=== PATIENT | female | born 1945 | race Hispanic/Latino ===

== ENCOUNTER → 2018-08-04 | Outpatient (CLI) | payer OTHER, MEDICARE ==
[~2018-08-04] MED LIST: ASPI-1005 PO; FURO20TA4 PO; LORA0.5P MC; LOSA50TA25 PO; METO-408 PO; ONDA4TAB10 PO; PRAV40TA3 PO; RANI150T7 PO; SERT25TA5 PO; TRAM50TA4 PO
== END | disposition home or self-care (01) ==
LOC: SHCH 09:18
PROVIDERS: ATTEND Internal Medicine Cardiovascular Disease
DX: I35.0 Nonrheumatic aortic (valve) stenosis (principal); I51.7 Cardiomegaly; I65.23 Occlusion and stenosis of bilateral carotid arteries; Z95.2 Presence of prosthetic heart valve
CPT/HCPCS: 93306; 93880

== ENCOUNTER → 2020-12-09 | Outpatient (CLI) | payer OTHER, MEDICARE ==
[~2020-12-09] MED LIST changes: -LOSA50TA25 PO; +LOSA50TA64 PO; +SERT-438 PO; -SERT25TA5 PO
== END | disposition home or self-care (01) ==
LOC: SHCH 10:00
PROVIDERS: ATTEND Internal Medicine Cardiovascular Disease
DX: I35.8 Other nonrheumatic aortic valve disorders (principal); I27.20 Pulmonary hypertension, unspecified; R01.1 Cardiac murmur, unspecified
CPT/HCPCS: 93306; 93356

== ENCOUNTER → 2020-12-13 | Outpatient (CLI) | payer OTHER, MEDICARE ==
[~2020-12-13] VITALS: Ht 162.6 cm; Wt 95.3 kg
[~2020-12-13] MED LIST changes: +REGADENOSON 0.4 MG/5 ML PF SYG IVP SCH
== END | disposition home or self-care (01) ==
LOC: SHCH 08:18
PROVIDERS: ATTEND Internal Medicine Cardiovascular Disease
DX: I10 Essential (primary) hypertension (principal); Z79.899 Other long term (current) drug therapy; R07.89 Other chest pain
CPT/HCPCS: 78452; 93017; 96374; A9500 ×2; J2785

== ENCOUNTER 2021-01-03 07:24 | Day surgery (SDC) | payer OTHER, MEDICARE ==
[2021-01-01 11:40] LABS: APPEARANCE,URINE Clear (CLEAR); BILIRUBIN,URINE Negative (NEGATIVE); COLOR,URINE Yellow (YELLOW); GLUCOSE, URINE (UA) Negative (NEGATIVE); KETONES,URINE Negative (NEGATIVE); LEUKOCYTE ESTERASE ,URINE Moderate (NEGATIVE); NITRATE,URINE Negative (NEGATIVE); OCCULT BLOOD,URINE Negative (NEGATIVE); PROTEIN,URINE Negative (NEGATIVE); UROBILINOGEN,URINE 0.2 mg/dL (0.2-1.0)
[2021-01-01 11:42] LABS: BASOPHILS % (AUTO) 0.9 % (0.0-5.0); HEMATOCRIT 39.7 % (36-48); LYMPHOCYTES % (AUTO) 29.9 % (21.0-51.0); MEAN CORPUSCULAR HEMOGLOBIN 28.2 pg (27.0-33.0); MEAN CORPUSCULAR HGB CONC 33.8 g/dL (32.0-36.0); MEAN CORPUSCULAR VOLUME 83.4 fL (79-99); MONOCYTES % (AUTO) 5.4 % (3.0-13.0); NEUTROPHILS % (AUTO) 59.5 % (40.0-77.0); PLATELET COUNT (AUTO) 170 K/uL (130-400); RED BLOOD CELL COUNT(AUTO) 4.76 MIL/uL (4.00-5.50); RED CELL DISTRIBUTION WIDTH 13.3 % (11.0-15.5); WHITE BLOOD COUNT (AUTO) 8.8 K/uL (4.8-10.8)
[2021-01-01 11:44] LABS: BACTERIA,URINE Rare /HPF (None Seen); RBC,URINE 0-1 /HPF (0-1); SQUAMOUS EPITHELIAL CELL,UR Rare /HPF (0-2)
[2021-01-01 11:50] LABS: PROTHROMBIN TIME 10.9 SEC (9.6-11.6)
[2021-01-01 11:51] LABS: PARTIAL THROMBOPLASTIN TIME 25.4 SEC (26.3-35.5)
[2021-01-01 11:55] LABS: CREATININE 0.8 mg/dL (0.5-1.5); POTASSIUM 4.2 mmol/L (3.5-5.1)
[2021-01-02 09:08] VITALS: BP 127/64
[2021-01-03] VITALS (30 sets, daily range): BP systolic 14–141; BP diastolic 47–144
[~2021-01-03] VITALS: Ht 157.5 cm; Wt 93.1 kg
[~2021-01-03 07:24] MED LIST changes: -ASPI-1005 PO; +ATOR10 PO; +LEVO50TA11 PO; +LISI10TA24 PO; -LORA0.5P MC; -LOSA50TA64 PO; +METF-444 PO; +OMEP40CA13 PO; -ONDA4TAB10 PO; -PRAV40TA3 PO; -RANI150T7 PO; -REGADENOSON 0.4 MG/5 ML PF SYG IVP SCH
[2021-01-03] MEDS ORDERED: SODIUM CHLORIDE 0.9% 500ML 500 ML IV ONE (08:09)
[2021-01-03] MEDS ORDERED: IOHEXOL-350 75 ML VIAL IV ONE (11:01)
[2021-01-03] MEDS ORDERED: MIDAZOLAM HCL 1 MG/ML 2ML VIAL ONE ×2 (11:01→14:03)
[2021-01-03] MEDS ORDERED: LIDOCAINE HCL 2% 20ML ONE (11:01)
[2021-01-03] MEDS ORDERED: HEPARIN SODIUM 1000UNIT/ML 10ML VIAL ONE (11:01)
[2021-01-03] MEDS ORDERED: MEPERIDINE-PF 25 MG/ML SYG ONE (11:01)
[2021-01-03] MEDS ORDERED: NITROGLYCERIN 2 MG/VIAL VIAL IV ONE (11:06)
[2021-01-03] MEDS ORDERED: IOPAMIDOL-370 100 ML VIAL IV ONE (11:07)
[2021-01-03] MEDS ORDERED: SODIUM BICARB 50MEQ 50ML VIAL 50 ML ONE (11:08)
[2021-01-03] MEDS ORDERED: SODIUM CHLORIDE 0.9% 10 ML VIAL IVP SCH (12:45)
[2021-01-03] MEDS ORDERED: LIDOCAINE HCL 2% VISCOUS 15 ML UDCUP ONE (14:00)
[2021-01-03] MEDS ORDERED: FENTANYL CITRATE PF 50 MCG/1 ML 2ML VIAL ONE (14:02)
[2021-01-03] MEDS ORDERED: NALOXONE HCL 0.4 MG/1 ML ML ONE (14:02)
[2021-01-03] MEDS ORDERED: FLUMAZENIL 0.1MG/1ML 5ML VIAL IV ONE (14:02)
[2021-01-03] MEDS ORDERED: LIDOCAINE HCL 2% VISCOUS 15 ML UDCUP PO SCH (15:15)
== END 2021-01-03 18:34 | disposition home or self-care (01) ==
LOC: DAH 07:24
PROVIDERS: ATTEND Internal Medicine Cardiovascular Disease
DX: R07.89 Other chest pain (principal); I35.0 Nonrheumatic aortic (valve) stenosis; I11.0 Hypertensive heart disease with heart failure; I50.32 Chronic diastolic (congestive) heart failure; E78.5 Hyperlipidemia, unspecified; E66.9 Obesity, unspecified; Z79.82 Long term (current) use of aspirin; Z79.890 Hormone replacement therapy; Z79.899 Other long term (current) drug therapy; Z98.890 Other specified postprocedural states; Z90.89 Acquired absence of other organs; Z79.01 Long term (current) use of anticoagulants; Z95.3 Presence of xenogenic heart valve; Z68.36 Body mass index [BMI] 36.0-36.9, adult
CPT/HCPCS: 36415; 71045; 80048; 81001; 82948 ×2; 85025; 85610; 85730; 87088; 93005; 93312; 93325; 93460; 93567; A4215; A4216 ×2; A4221; A4222; A4223 ×3; A4606; A4615; A4657; A4663; C1760 ×2; C1769 ×3; C1893 ×2; C1894 ×4; J1644; J2175; J2250; J3010; J3490 ×3; J7040; Q9967 ×2; 93313; 93456; 96374; 96375; 99152; 99156; 99157; J2310

== ENCOUNTER → 2021-11-26 | Outpatient (CLI) | payer OTHER, MEDICARE ==
[~2021-11-26] MED LIST changes: -OMEP40CA13 PO; +OMEP40CA21 PO
== END | disposition home or self-care (01) ==
LOC: SHCH 14:13
PROVIDERS: ATTEND Internal Medicine Cardiovascular Disease
DX: I08.0 Rheumatic disorders of both mitral and aortic valves (principal); I11.9 Hypertensive heart disease without heart failure; I25.10 Atherosclerotic heart disease of native coronary artery without angina pectoris; Z95.2 Presence of prosthetic heart valve; Z95.3 Presence of xenogenic heart valve
CPT/HCPCS: 93306

== ENCOUNTER → 2022-04-28 | Outpatient (CLI) | payer OTHER, MEDICARE ==
[2022-04-28 11:31] LABS: BASOPHILS % (AUTO) 0.9 % (0.0-5.0); HEMATOCRIT 24.2 % (36-48); LYMPHOCYTES % (AUTO) 49.1 % (21.0-51.0); MEAN CORPUSCULAR HEMOGLOBIN 26.2 pg (27.0-33.0); MEAN CORPUSCULAR HGB CONC 33.1 g/dL (32.0-36.0); MEAN CORPUSCULAR VOLUME 79.3 fL (79-99); MONOCYTES % (AUTO) 18.8 % (3.0-13.0); NEUTROPHILS % (AUTO) 31.2 % (40.0-77.0); PLATELET COUNT (AUTO) 109 K/uL (130-400); RED BLOOD CELL COUNT(AUTO) 3.05 MIL/uL (4.00-5.50); RED CELL DISTRIBUTION WIDTH 17.6 % (11.0-15.5); WHITE BLOOD COUNT (AUTO) 2.2 K/uL (4.8-10.8)
[2022-04-28 11:43] LABS: % IRON SATURATION 13.8 % (22-44); CREATININE 1.2 mg/dL (0.5-1.5); POTASSIUM 4.2 mmol/L (3.5-5.1); TOTAL PROTEIN, SERUM 8.6 g/dL (6.0-8.3)
[2022-04-28 14:16] LABS: BAND NEUTROPHILS % (MANUAL) 8 % (0-2); BASOPHILS % (MANUAL) 1 % (0-2); LYMPHOCYTES % (MANUAL) 53 % (22-44); MAN.DIFF COMMENT-IMPRESSION MANUAL DIFFERENTIAL; MONOCYTES % (MANUAL) 14 % (2-9); SEGMENTED NEUTROPHILS % 24 % (40-70)
[2022-04-28 14:17] LABS: PLATELET MORPHOLOGY COMMENT ADEQUATE
== END | disposition home or self-care (01) ==
LOC: LAB 10:16
PROVIDERS: ATTEND Internal Medicine Gastroenterology
DX: R06.02 Shortness of breath (principal); D50.9 Iron deficiency anemia, unspecified
CPT/HCPCS: 36415; 71046; 80053; 82728; 83540; 83550; 85025

== ENCOUNTER → 2022-05-01 | Outpatient (CLI) | payer OTHER, MEDICARE ==
[~2022-05-01] MED LIST changes: +IOHEXOL 350 MG/ML 100ML INFUS..BTL IV ONE
== END | disposition home or self-care (01) ==
LOC: RAH 07:45
PROVIDERS: ATTEND Internal Medicine Gastroenterology
DX: I51.7 Cardiomegaly (principal); K80.20 Calculus of gallbladder without cholecystitis without obstruction; M43.17 Spondylolisthesis, lumbosacral region; D50.9 Iron deficiency anemia, unspecified; R06.02 Shortness of breath
CPT/HCPCS: 74178; Q9967

== ENCOUNTER → 2022-05-21 | Outpatient (CLI) | payer OTHER, MEDICARE ==
[~2022-05-21] MED LIST changes: -IOHEXOL 350 MG/ML 100ML INFUS..BTL IV ONE
== END | disposition home or self-care (01) ==
LOC: RAH 07:37
PROVIDERS: ATTEND Internal Medicine Gastroenterology
DX: K80.20 Calculus of gallbladder without cholecystitis without obstruction (principal); R94.5 Abnormal results of liver function studies; R16.1 Splenomegaly, not elsewhere classified; K76.0 Fatty (change of) liver, not elsewhere classified
CPT/HCPCS: 76700; 93975

== ENCOUNTER → 2022-06-03 | Outpatient (CLI) | payer OTHER, MEDICARE | END | disposition home or self-care (01) | LOC: LAB 10:02 | PROVIDERS: ATTEND Internal Medicine Cardiovascular Disease | DX: D64.9 Anemia, unspecified (principal) | CPT/HCPCS: 82270 ==

== ENCOUNTER 2022-07-23 15:37 | Emergency (ER) | payer OTHER, MEDICARE ==
[~2022-07-23] VITALS: Ht 162.6 cm; Wt 71.2 kg
[~2022-07-23 15:37] MED LIST changes: +DOCU-116 PO; +LEVO-170 PO; -LEVO50TA11 PO; +METO-391 PO; -METO-408 PO; -OMEP40CA21 PO; +ONDA4TAB10 PO
[2022-07-23 16:17] LABS: BASOPHILS % (AUTO) 0.8 % (0.0-5.0); HEMATOCRIT 25.4 % (36-48); LYMPHOCYTES % (AUTO) 21.5 % (21.0-51.0); MEAN CORPUSCULAR HEMOGLOBIN 29.8 pg (27.0-33.0); MEAN CORPUSCULAR HGB CONC 33.9 g/dL (32.0-36.0); MEAN CORPUSCULAR VOLUME 87.9 fL (79-99); MONOCYTES % (AUTO) 7.6 % (3.0-13.0); NEUTROPHILS % (AUTO) 67.8 % (40.0-77.0); PLATELET COUNT (AUTO) 154 K/uL (130-400); RED BLOOD CELL COUNT(AUTO) 2.89 MIL/uL (4.00-5.50); WHITE BLOOD COUNT (AUTO) 6.1 K/uL (4.8-10.8)
[2022-07-23 16:28] LABS: CREATININE 4.2 mg/dL (0.5-1.5); POTASSIUM 4.1 mmol/L (3.5-5.1)
[2022-07-23 16:37] LABS: ALBUMIN 2.9 g/dL (3.5-5.0); TOTAL PROTEIN, SERUM 7.5 g/dL (6.0-8.3)
[2022-07-23 17:24] LABS: APPEARANCE,URINE CLEAR (CLEAR); BILIRUBIN,URINE NEGATIVE (NEGATIVE); COLOR,URINE LIGHT-YELLOW (YELLOW); GLUCOSE, URINE (UA) NEGATIVE (NEGATIVE); KETONES,URINE NEGATIVE (NEGATIVE); LEUKOCYTE ESTERASE ,URINE 25 Leu/uL (NEGATIVE); NITRATE,URINE NEGATIVE (NEGATIVE); OCCULT BLOOD,URINE LARGE (NEGATIVE); PROTEIN,URINE 200 mg/dL (NEGATIVE); UROBILINOGEN,URINE 0.2 mg/dL (0.2-1.0)
[2022-07-23 17:31] LABS: BACTERIA,URINE RARE /HPF (None Seen); OTHER CASTS, URINE 1 /LPF (None Seen); RBC,URINE 26-50 /HPF (0-1); SQUAMOUS EPITHELIAL CELL,UR RARE /HPF (0-2)
[2022-07-23] MEDS ORDERED: MORPHINE 2 MG SYG IM ONE (20:00)
[2022-07-23] MEDS ORDERED: CEFTRIAXONE 1G VIAL IVP ONE (20:00)
[2022-07-23 20:12] VITALS: BP 156/62
[2022-07-23] MEDS ORDERED: CEFU500T67 PO (20:55)
== END 2022-07-23 21:18 | disposition home or self-care (01) ==
LOC: EDH 15:37
DX: K80.20 Calculus of gallbladder without cholecystitis without obstruction (principal); E11.22 Type 2 diabetes mellitus with diabetic chronic kidney disease; N18.6 End stage renal disease; Z99.2 Dependence on renal dialysis; Z79.84 Long term (current) use of oral hypoglycemic drugs; N39.0 Urinary tract infection, site not specified; I12.0 Hypertensive chronic kidney disease with stage 5 chronic kidney disease or end stage renal disease; E78.00 Pure hypercholesterolemia, unspecified; I10 Essential (primary) hypertension; I51.7 Cardiomegaly; Z90.710 Acquired absence of both cervix and uterus; Z90.89 Acquired absence of other organs
CPT/HCPCS: 99285; 74176; 96374; 76705; 84484; 80053; 83690; 85025; 87088; 81001; 36415; 96372; 93005; J0696

== ENCOUNTER → 2022-07-31 | Outpatient (CLI) | payer OTHER, MEDICARE ==
[~2022-07-31] MED LIST changes: +CEFU500T67 PO
[2022-07-31 12:36] LABS: BASOPHILS % (AUTO) 1.2 % (0.0-5.0); EOSINOPHILS % (AUTO) 3.3 % (0.0-8.0); HEMATOCRIT 25.8 % (36-48); LYMPHOCYTES % (AUTO) 26.7 % (21.0-51.0); MEAN CORPUSCULAR HGB CONC 32.9 g/dL (32.0-36.0); MEAN CORPUSCULAR VOLUME 91.2 fL (79-99); MONOCYTES % (AUTO) 8.8 % (3.0-13.0); NEUTROPHILS % (AUTO) 59.8 % (40.0-77.0); PLATELET COUNT (AUTO) 135 K/uL (130-400); RED BLOOD CELL COUNT(AUTO) 2.83 MIL/uL (4.00-5.50); RED CELL DISTRIBUTION WIDTH 18.2 % (11.0-15.5); WHITE BLOOD COUNT (AUTO) 4.9 K/uL (4.8-10.8)
[2022-07-31 13:03] LABS: CREATININE 2.9 mg/dL (0.5-1.5); MAGNESIUM 1.8 mg/dL (1.80-2.40); POTASSIUM 4.2 mmol/L (3.5-5.1); T4 (THYROXINE) 21.6 ug/dL (4.7-13.3); THYROID STIMULATING HORMONE 0.03 uIU/mL (0.36-3.74); TOTAL PROTEIN, SERUM 7.6 g/dL (6.0-8.3)
[2022-07-31 13:26] LABS: B-TYPE NATRIURETIC PEPTIDE 920 pg/mL (0-100)
== END | disposition home or self-care (01) ==
LOC: LAB 09:15
PROVIDERS: ATTEND Internal Medicine Cardiovascular Disease
DX: I35.0 Nonrheumatic aortic (valve) stenosis (principal); I10 Essential (primary) hypertension
CPT/HCPCS: 36415; 80053; 83735; 83880; 84436; 84443; 84479; 85025

== ENCOUNTER → 2022-08-17 | Outpatient (CLI) | payer OTHER, MEDICARE ==
[~2022-08-17] MED LIST changes: +ACET650O3 PO; +AEC81 PO; +ATOR40TA71 PO; +BENZ200C53 PO; +CLON-465 PO; +DOCU100C33 PO; +FOLI0.8T2 PO; +LEVO200T10 PO; +OMEP20CA12 PO; +ONDA22I PO; +SERT25TA PO
== END | disposition home or self-care (01) ==
LOC: SHCH 07:35
PROVIDERS: ATTEND Internal Medicine Cardiovascular Disease
DX: I08.8 Other rheumatic multiple valve diseases (principal); I27.20 Pulmonary hypertension, unspecified; I11.9 Hypertensive heart disease without heart failure; E11.9 Type 2 diabetes mellitus without complications; E78.5 Hyperlipidemia, unspecified; Z95.2 Presence of prosthetic heart valve
CPT/HCPCS: 93306

== ENCOUNTER → 2023-01-06 | Outpatient (CLI) | payer OTHER, MEDICARE | END | disposition home or self-care (01) | LOC: SHCH 13:58 | PROVIDERS: ATTEND Internal Medicine Cardiovascular Disease | DX: T82.857A Stenosis of other cardiac prosthetic devices, implants and grafts, initial encounter (principal); I08.0 Rheumatic disorders of both mitral and aortic valves; I10 Essential (primary) hypertension; E78.5 Hyperlipidemia, unspecified; Z95.2 Presence of prosthetic heart valve | CPT/HCPCS: 93306 ==